=== PATIENT | male | born 1990 | race Caucasian/White ===

== ENCOUNTER 2024-04-20 17:54 | Emergency (ER) | payer BC ==
[~2024-04-20] VITALS: Ht 165.1 cm; Wt 78.0 kg
[2024-04-20 18:42] VITALS: BP_SYST 131; PULSE 103; RESP 17; TEMP 98.5; O2SAT 97
[2024-04-20 19:15] VITALS: TEMP 98.5
[2024-04-20] MEDS: HYDROcodone/ACETAMIN 5-325 MG TAB (NORCO/ VICODIN) PO ONE (20:39)
[2024-04-20] MEDS ORDERED: ACET-2634 PO (21:02)
[2024-04-20] MEDS ORDERED: IBUP-1969 PO (21:02)
[2024-04-20 22:47] VITALS: O2SAT 95
[2024-04-21 05:19] VITALS: BP_SYST 130; PULSE 90; RESP 18
== END 2024-04-21 05:19 | disposition home or self-care (01) ==
LOC: SED 17:54
DX: S62.324A Displaced fracture of shaft of fourth metacarpal bone, right hand, initial encounter for closed fracture (principal); Z79.899 Other long term (current) drug therapy; W18.39XA Other fall on same level, initial encounter; Y93.89 Activity, other specified; Y92.89 Other specified places as the place of occurrence of the external cause; Y99.8 Other external cause status
CPT/HCPCS: 99283